=== PATIENT | male | born 2005 | race Two or more races ===

== ENCOUNTER 2025-02-09 03:07 | Emergency (ER) | payer SELFPAY ==
[2025-02-09 03:09] VITALS: BMI 25.5
[2025-02-09 03:15] VITALS: BP 139/90; PULSE 108; RESP 20; TEMP 36.6; O2SAT 97
--- NOTE | 2025-02-09 03:24 | XR_ITS ---
Examination: CT brain head without contrast. 2-D sagittal coronal reconstructions Date and time of exam: February 09, 2025, 0335 hours INDICATIONS: Ground-level fall today with injury to the head, head pain laceration CTDI: vol (mGy): 49.9 DLP: (mGycm): 1091 Technique: Multiple CT axial sections of the brain have been obtained, 5 mm slice thickness. Contrast has not been administered. 2-D sagittal, coronal reconstructions have been obtained Low dose protocols were performed. One or more of the following dose reduction techniques were used; automated exposure control, adjustment of the mA and/or KV according to patient size, use of iterative reconstruction technique. Findings: No significant ventricular enlargement. Intra-axial or extra-axial hemorrhage density is not seen. No mass effect or midline shift Basal cisterns are not remarkable. Fourth ventricle is midline. Cranial vault intact. Impression: Negative for acute hemorrhage, mass effect or midline shift
--- NOTE | 2025-02-09 03:26 | PD.EDHEAD ---
ED Head Injury RME/HPI General Chief complaint: Wound/Laceration Stated complaint: FELL FROM TRAILER, LACERATION TO HEAD, DIZZY Time Seen by Provider: 02/09/25 03:23 Arrival date/time: 02/09/25 03:07 19M with no significant PMH presents to ED with head lac after he fell about 4 feet off a trailer while intoxicated. Patient denies LOC, but is dizzy. Patient has not had a tetanus shot in the past 5 years. Limitations: no limitations Related Data Allergies Allergy/AdvReac Type Severity Reaction Status Date / Time No Known Allergies Allergy Verified 02/09/25 03:09 Review of Systems Review of Systems Systems Reviewed: All systems reviewed, normal except as documented ENT Ears, Nose, Mouth, and Throat: Reports as per HPI and Reports vertigo Integumentary/Breasts Skin/Breast: Reports as per HPI and Reports skin pain Neurologic Neurologic: Reports vertigo Past Medical History Social History SMOKING STATUS: Never smoker ED Exam General Limitations: Present no limitations General appearance: Present alert and in no apparent distress Expanded Head Exam Head exam physical: Present laceration (4 cm lac on top of head/scalp) Neck Neck exam: Present normal inspection, full ROM and trachea midline Chest Chest inspection: Present normal inspection and symmetric chest wall rise Neurological Exam Neurological exam: Present alert and oriented X3 Psychiatric Psychiatric exam: Present normal affect and normal mood Skin Skin exam: Present warm, dry, intact and normal color Course Quality Measures none Orders Category Date Time Status Stapler to Beside ONCE Care 02/09/25 03:24 Active Wound Care NOW Care 02/09/25 03:[address] head/brain wo con Stat Exams 02/09/25 03:24 Taken TET,DIP/PERT AC (Adult)-Tdap [Boostrix Adult (Tdap) Med 02/09/25 03:24 Discontinued Vacc] 0.5 ml IMI .ONCE ONE Vital Signs Vital signs: Vital Signs Temperature 97.9 F 02/09/25 03:15 Pulse Rate 108 H 02/09/25 03:15 Respiratory Rate 20 02/09/25 03:15 Blood Pressure 139/90 H 02/09/25 03:15 Pulse Oximetry (%) 97 02/09/25 03:15 Oxygen Delivery Method Room Air 02/09/25 03:15 O2 at 97% on RA and WNLs Head Injury MDM Narrative MDM Narrative:: 19M with no significant PMH presents to ED with head lac after he fell about 4 feet off a trailer while intoxicated. Patient denies LOC, but is dizzy. Patient has not had a tetanus shot in the past 5 years. Physical exam reveals 4 cm lac on top of scalp. Neck ROM intact. Gait normal. Patient is afebrile, calm, and alert. Wound cleaned/irrigated and closed with 10 nanda. Given appliance counselor to have them removed in about [address] telerad unremarkable. Patient data External records reviewed:: None Clinical information provided by:: patient Social determinants that could affect healthcare access:: none Patient has the following chronic illnesses:: none How is presenting disease/condition affected by chronic disease/condition?: no chronic disease Evaluation data The following diagnostics were reviewed and interpreted by me:: radiology exam(s) Lab and/or radiology exams considered but not ordered:: ordered Interpretation Summary: above Medications / Prescriptions Medications or Prescriptions considered but not ordered:: ordered Medication administrations:: Medication Administration History Discontinued Medications Diphtheria/Tetanus/Acell Pertussis (Diphth,Pertuss(Acell),Tet Vac 0.5 Ml Syr- Adult) 0.5 ml IMi .ONCE ONE Stop: 02/09/25 03:25 Last Admin: 02/09/25 03:37 Dose: 0.5 ml Documented By: ALEX above Consultations Consultation(s) initiated? (list below): No Diagnosis Differential diagnosis head injury: concussion without loss of consciousness, epidural hematoma, closed head injury, subarachnoid hematoma, postconcussion syndrome, subdural hematoma and other (laceration) Most likely diagnosis given after review of the tests above:: laceration and CHI Admission Indicated Admission indicated?: not indicated Admission Request Was there a request for admission?: No Disposition Plan Disposition Plan: Discharge Discharge Attestation Discharge Attestation: The patient and all family members were given an opportunity to ask questions and understood the discharge instructions. Discharge instructions specifically effects, indications for sooner follow up or return to the emergency department, and the expected course of current diagnosis. Patient condition: Stable Discharge Plan Plan Patient Disposition: HOME (Self Care) Discharge Disposition comment: Stable Problem List Clinical Impression: CHI (closed head injury), Laceration Patient/Caregiver Discharge Instructions Education Materials: ED Head Injury (Adult), ED Laceration Scalp Sutures or ... Additional Instructions: Please follow-up with PCP within 24-48 hours and return immediately if symptoms worsen. Have nanda removed in about 10 days. Print Language: Brazilian Stand Alone Forms: Patient Portal Info Letter PA/PHOTO EQUIPMENT TECHNICIAN Supervising Physician PA/PHOTO EQUIPMENT TECHNICIAN Supervising Physician: Dr. Anderson
[2025-02-09] MEDS: DIPHTH,PERTUSS(ACELL),TET VAC 0.5 ML SYR- ADULT IMi (03:37)
--- NOTE | 2025-02-09 03:49 | PRELIM_ITS ---
CT scan of the head without intravenous contrast (axial sections with sagittal and coronal reformats). February 09, 2025 0334 hours Clinical History: Fall while intoxicated Comparison: None Findings: There is no intracranial hemorrhage, extra-axial collection, mass, mass-effect or midline shift. There is good botello-white differentiation. There is no CT evidence of acute large vascular territorial infarct. Ventricles are not enlarged or effaced. Visualized paranasal sinuses and tympanomastoid cavities are clear. The bony calvarium is intact. Impression: No intracranial hemorrhage, mass-effect or midline shift. No CT evidence of acute large vascular territorial infarct. Report Electronically Signed By: Reji Donovan 02/09/2025 3:49:29 AM [EST]
[2025-02-09 04:05] VITALS: PULSE 96
== END 2025-02-09 04:06 | disposition home or self-care (01) ==
LOC: SERX 04:23
PROVIDERS: Emergency Provider Emergency Medicine
DX: S01.01XA Laceration without foreign body of scalp, initial encounter (principal); W17.89XA Other fall from one level to another, initial encounter
CPT/HCPCS: 12001; 70450; 90471; 90715; 99284